=== PATIENT | female | born 1990 | race Caucasian/White ===

== ENCOUNTER 2022-05-03 08:25 | Emergency (ER) | payer BC, SELFPAY ==
[2022-05-03 08:32] VITALS: BP 111/76; PULSE 95; RESP 20; TEMP 36.8; O2SAT 100
--- NOTE | 2022-05-03 09:01 | ED.URI ---
HPI - URI/Sore Throat General Chief Complaint: Upper Respiratory Infection Stated Complaint: sore throat and ear pain Time Seen by Provider: 05/03/22 09:06 History of Present Illness HPI Narrative: Patient presents with a cough. No shortness of breath no chest pain productive cough at times. Patient states she was treated 1 week ago for sinus infection with Augmentin and Medrol Dosepak. Patient states she felt well for a short time and then started with a fever generalized body aches and cough. Patient states she is taking Mucinex and using Flonase for her symptoms. Related Data Home Medications Medication Instructions Recorded Confirmed alprazolam 0.5 mg tablet 0.5 mg QID PRN Anxiety 05/03/22 05/03/22 duloxetine 60 mg capsule,delayed 60 mg PO DAILY 05/03/22 05/03/22 release hydroxychloroquine 200 mg tablet 200 mg PO BID 05/03/22 05/03/22 liraglutide 0.6 mg/0.1 mL (18 mg/3 mg subcut 05/03/22 mL) subcutaneous pen injector ([employer] 2-Irving) ondansetron HCl 4 mg tablet 4 mg Q6-8H PRN Nausea 05/03/22 05/03/22 Allergies Allergy/AdvReac Type Severity Reaction Status Date / Time sweet potato Allergy Unknown Verified 05/03/22 09:05 codeine AdvReac Gastrointestinal Verified 05/03/22 09:05 Upset Sulfa (Sulfonamide AdvReac Other Verified 05/03/22 09:05 Antibiotics) Review of Systems Review of Systems: CONSTITUTIONAL: Denies chills, or sweats. Reports fever and generalized body aches EYES: Denies visual changes, redness, or discharge. ENT: Denies otalgia. Reports nasal congestion runny nose and sore throat CARDIOVASCULAR: Denies chest pain, palpitations, or edema. RESPIRATORY: Denies dyspnea. Reports occasional cough GASTROINTESTINAL: Denies abdominal pain, nausea, vomiting, or diarrhea. GENITOURINARY: Denies dysuria or hematuria. SKIN: Denies rash or itching. MUSCULOSKELETAL: Denies back pain, joint pain, or myalgia. Reports generalized body aches NEUROLOGIC: Denies headache, numbness, or weakness. PSYCHIATRIC: Denies anxiety or depression. [facility] Comments At time of signature, agree with nursing past medical, surgical, social and family history. There is no relevant family history pertinent to the presenting complaint Exam Narrative: The patient is a well-developed, well-nourished in no acute distress. SKIN: Skin is warm and dry without erythema, swelling or exudate. There is good turgor. No tenting. HEAD: Atraumatic. Normocephalic. No temporal or scalp tenderness. EYES: Moist and bright. Sclera and conjunctivae normal. No discharge. PERRLA. Extraocular motions intact. Gross visual acuity intact. EARS: Pinna is normal shape and contour. Clear external auditory canals. TM pearly schulz with good cone of light, no erythema or suppuration. Bilateral cerumen noted no gross hearing deficit. NOSE: pink, moist mucosa with good air movement. Clear rhinorrhea without nasal flaring. Septum midline. Mouth: moist mucous membranes. THROAT; mild erythema noted to posterior oropharynx with moderate postnasal drainage. Without exudate or ulceration.. Uvula midline. Normal movement of soft palate. NECK: Supple and nontender with full range of motion without discomfort. No meningeal signs. LUNGS: Equal and bilateral breath sounds without wheezes, rales or rhonchi. CHEST: The chest wall is without retractions or use of accessory muscles. HEART: Has a regular rate and rhythm without murmur, gallops, click or rub. ABDOMEN: Soft, nontender with positive active bowel sounds. No rebound tenderness. EXTREMITIES: Without cyanosis, clubbing or edema. Equal 2+ distal pulses and 2 second capillary refill noted. NEUROLOGIC: alert, active, . The patient moves all extremities with normal muscle strength. Normal muscle tone is noted. Normal coordination is noted. NO focal neurological findings noted. Course Course Level of Care: Express Care Visit Vital Signs Vital signs: Vital Signs Temperature 36.8 C 05/03/22 08:32 Pulse Rate
== END 2022-05-03 09:26 | disposition home or self-care (01) ==
PROVIDERS: Emergency Provider Nurse Practitioner Family
DX: J40 Bronchitis, not specified as acute or chronic (principal); J06.9 Acute upper respiratory infection, unspecified
CPT/HCPCS: 99213; G0463

== ENCOUNTER 2022-07-29 17:32 | Emergency (ER) | payer BC, SELFPAY ==
--- NOTE | ~2022-07-29 | XR_ITS ---
EXAMINATION: XR chest 2V DATE: 07/29/2022 18:34 INDICATION: Cough and shortness of breath TECHNIQUE: PA and lateral views of the chest are obtained. COMPARISON: None available FINDINGS: The lungs are free of acute opacities. No pleural effusion or pneumothorax. The cardiomedia stinal silhouette is normal. The visualized bones and soft tissues are unremarkable. IMPRESSION: 1. No acute cardiopulmonary abnormality. Reviewed, dictated and finalized at location F. P [facility]AT[facility]PERATOR
[2022-07-29 17:42] VITALS: BP 111/74; PULSE 89; RESP 14; TEMP 36.8; O2SAT 100
--- NOTE | 2022-07-29 18:18 | ED.URI ---
HPI - URI/Sore Throat General Chief Complaint: Upper Respiratory Infection Stated Complaint: Chest Congestion Source: patient and RN notes reviewed History of Present Illness HPI Narrative: 31-year-old female presents to urgent care with complaints of heaviness in her chest and shortness of breath. Patient states she tested positive for COVID last Tuesday and began having symptoms on 07/21/2022. Patient states last time she had COVID she ended up with double pneumonia and feels like she has the same this time. Patient denies any vomiting or diarrhea. Denies any fevers. Some parts of this dictation were generated by voice recognition software and may contain typographical and/or grammatical inaccuracies. Related Data Home Medications Medication Instructions Recorded Confirmed alprazolam 0.5 mg tablet 0.5 mg QID PRN Anxiety 05/03/22 07/29/22 duloxetine 60 mg capsule,delayed 60 mg PO DAILY 05/03/22 07/29/22 release hydroxychloroquine 200 mg tablet 200 mg PO BID 05/03/22 07/29/22 liraglutide 0.6 mg/0.1 mL (18 mg/3 1.8 mg subcut DIRECTED 05/03/22 07/29/22 mL) subcutaneous pen injector ([employer]-Irving) folic acid 1 mg tablet 1 mg PO DIRECTED 07/29/22 07/29/22 methotrexate sodium 2.5 mg tablet 2.5 mg PO DIRECTED 07/29/22 07/29/22 Allergies Allergy/AdvReac Type Severity Reaction Status Date / Time sweet potato Allergy Unknown Verified 07/29/22 17:57 codeine AdvReac Gastrointestinal Verified 07/29/22 17:57 Upset Sulfa (Sulfonamide AdvReac Other Verified 07/29/22 17:57 Antibiotics) Review of Systems Review of Systems: CONSTITUTIONAL: Denies fever, chills, or sweats. EYES: Denies visual changes, redness, or discharge. ENT: Denies otalgia and sore throat CARDIOVASCULAR: Chest heaviness. RESPIRATORY: dyspnea. GASTROINTESTINAL: Denies abdominal pain, nausea, vomiting, or diarrhea. GENITOURINARY: Denies dysuria or hematuria. SKIN: Denies rash or itching. MUSCULOSKELETAL: Denies back pain, joint pain, or myalgia. NEUROLOGIC: Denies headache, numbness, or weakness. [facility] Comments At the time of my signature, I reviewed and agree with the nursing past medical, surgical, social, and family history. There is no relevant family history pertinent to the patient complaint. Exam Narrative: GENERAL: This is a well-nourished, well-developed patient, in no apparent distress. HEAD: normocephalic, atraumatic. EYES: PERRL. Sclera clear/white. Vision is grossly intact. EARS: External ears normal, auditory canals clear and without drainage, TMs normal without perforation. Hearing grossly intact. NOSE: External nose normal with no obvious nasal discharge, nares without redness, no rhinorrhea. THROAT: Mucous membranes moist, posterior pharynx clear. NECK: Neck supple, non-tender without lymphadenopathy, masses or thyromegaly. CARDIOVASCULAR: Regular rate and rhythm without murmurs, gallops, or rubs. RESPIRATORY: Clear to auscultation. Breath sounds equal bilaterally. No wheezes, rales, or rhonchi. Speaking in full sentences. No respiratory distress. GASTROINTESTINAL: Abdomen soft, non-tender, nondistended. Bowel sounds are active. No hepato-splenomegaly, or palpable masses. No guarding. SKIN: warm, intact with no suspicious lesions or rash, good texture and turgor. NEURO: awake, alert, and oriented to person, place and time. There were no obvious focal neurologic abnormalities. EXTREMITIES: No clubbing, cyanosis, or edema. No joint tenderness, effusion, or edema noted. BACK: Nontender without deformity or crepitance. No flank tenderness. Course Course Level of Care: Express Care Visit Vital Signs Vital signs: Vital Signs Temperature 98.2 F 07/29/22 17:42 Pulse Rate 89 07/29/22 17:42 Respiratory Rate 14 07/29/22 17:42 Blood Pressure 111/74 07/29/22 17:42 Pulse Oximetry 100 07/29/22 17:42 Oxygen Delivery Room Air 07/29/22 17:42 Temperature 98.2 F 07/29/22 17:42 Pulse Rate 89
== END 2022-07-29 19:07 | disposition home or self-care (01) ==
PROVIDERS: Emergency Provider Nurse Practitioner Family
DX: U07.1 COVID-19 (principal)
CPT/HCPCS: 71046; 99213; G0463